=== PATIENT | female | born 2000 | race Caucasian/White ===

== ENCOUNTER 2024-04-05 06:32 | Emergency (ER) | payer OTHER ==
[~2024-04-05] VITALS: Ht 154.9 cm; Wt 75.5 kg
[2024-04-05] MEDS ORDERED: diphenhydrAMINE HCL 50 MG/ML VIAL IV ONE (07:00)
[2024-04-05] MEDS ORDERED: KETOROLAC TROMETHAMINE 30 MG/ML VIAL IV ONE (07:00)
[2024-04-05] MEDS ORDERED: LACTATED RINGER'S 1,000 ML IV ONE (07:00)
[2024-04-05] MEDS ORDERED: PROCHLORPERAZINE EDISYLATE 10 MG/2 ML VIAL IV ONE (07:00)
[2024-04-05] MEDS ORDERED: IMITREX100 MG (07:07)
[2024-04-05] MEDS ORDERED: PROZAC20 MG (07:08)
[2024-04-05 08:11] LABS: INFLUENZA B NAA NEGATIVE (NEGATIVE); RESPIRATORY SYNCYTIAL VIR NAA NEGATIVE (NEGATIVE)
[2024-04-05 08:34] VITALS: BP 137/84
== END 2024-04-05 08:34 | disposition home or self-care (01) ==
LOC: ED 06:32
PROVIDERS: Internal Medicine
DX: G43.919 Migraine, unspecified, intractable, without status migrainosus (principal); Z88.0 Allergy status to penicillin; Z88.2 Allergy status to sulfonamides; Z79.899 Other long term (current) drug therapy; Z20.822 Contact with and (suspected) exposure to COVID-19
CPT/HCPCS: 87502; 96374; 96375; 99283-25; J0780; J1200; J1885; J7121; U0002

== ENCOUNTER 2024-06-17 21:05 | Emergency (ER) | payer OTHER ==
[~2024-06-17] VITALS: Ht 154.9 cm; Wt 77.0 kg
[~2024-06-17 21:05] MED LIST: IMITREX100 MG; PROZAC20 MG
[2024-06-17] MEDS ORDERED: droPERidol 5 MG/2 ML VIAL IV ONE (22:45)
[2024-06-17] MEDS ORDERED: KETOROLAC TROMETHAMINE 30 MG/ML VIAL IV ONE (22:45)
[2024-06-17] MEDS ORDERED: SODIUM CHLORIDE 0.9% 1,000 ML IV ONE (22:45)
[2024-06-17 23:13] LABS: BASOPHILS 0.3 % (0-2); EOSINOPHILS 0.3 % (0-6); HEMATOCRIT 41.4 % (35.0-50.0); HEMOGLOBIN 14.2 g/dL (12.0-18.0); LYMPHOCYTES 12.7 % (24-44); MCH 30.2 (27-36); MCHC 34.3 g/dl (30-36); MCV 88.1 fl (81-99); MONOCYTES 5.1 % (0-12); NEUTROPHILS 81.6 % (39-80); PLATELET COUNT 328 K/uL (140-440); RDW 12.8 (10.5-15.0)
[2024-06-17 23:28] LABS: ALBUMIN 4.5 g/dL (3.4-5.0); ALBUMIN/GLOBULIN RATIO 1.36 (1.1-2.4); ANION GAP 18.4 (7-21); BILIRUBIN, TOTAL 0.5 ng/dL (0.2-1.0); BUN/CREATININE RATIO 9.19 (6.0-28.6); CALCIUM 9.8 mg/dL (8.5-10.1); CREATININE, SERUM 0.87 mg/dL (0.55-1.02); MAGNESIUM 1.6 mg/dL (1.8-2.4); POTASSIUM 3.4 mmol/L (3.5-5.1); PROTEIN, TOTAL 7.8 g/dL (6.4-8.2)
[2024-06-18 00:08] LABS: BILIRUBIN, URINE NEGATIVE (negative); BLOOD/HGB, URINE NEGATIVE (Negative); KETONE, URINE SMALL (Negative); LEUK ESTERASE, URINE NEGATIVE (negative); NITRITE, URINE NEGATIVE (negative)
[2024-06-18] MEDS ORDERED: IMITREX25 MG PO (00:13)
[2024-06-18] MEDS ORDERED: ONDANSETRON ODT8 MG PO (00:13)
[2024-06-18] MEDS ORDERED: ONDANSETRON 4 MG HOME.PACK SL ONE (00:15)
[2024-06-18 00:27] VITALS: BP 114/75
== END 2024-06-18 00:27 | disposition home or self-care (01) ==
LOC: ED 21:05
PROVIDERS: Family Medicine
DX: G43.909 Migraine, unspecified, not intractable, without status migrainosus (principal); Z88.2 Allergy status to sulfonamides; Z88.0 Allergy status to penicillin; Z79.899 Other long term (current) drug therapy
CPT/HCPCS: 36415; 80053; 81003; 83735; 84703; 85025; 96361; 96374; 96375; 99283-25; A9270; J1790; J1885; J7030

== ENCOUNTER 2024-10-15 19:26 | Emergency (ER) | payer OTHER ==
[~2024-10-15] VITALS: Ht 154.9 cm; Wt 76.2 kg
[~2024-10-15 19:26] MED LIST changes: +IMITREX25 MG PO; +ONDANSETRON ODT8 MG PO
[2024-10-15] MEDS ORDERED: PROCHLORPERAZINE EDISYLATE 10 MG/2 ML VIAL IM ONE (20:15)
[2024-10-15] MEDS ORDERED: KETOROLAC TROMETHAMINE 60 MG/2 ML VIAL IM ONE (20:15)
[2024-10-15 20:51] LABS: CORONAVIRUS COVID-19 AG NEGATIVE (NEGATIVE); INFLUENZA A AG NEGATIVE (NEGATIVE); INFLUENZA B AG NEGATIVE (NEGATIVE)
[2024-10-15] MEDS ORDERED: CEPHALEXIN500 M1 PO (21:08)
[2024-10-15] MEDS ORDERED: CEPHALEXIN MONOHYDRATE 500 MG HOME.PACK PO ONE (21:15)
[2024-10-15 21:22] VITALS: BP 135/86
== END 2024-10-15 21:24 | disposition home or self-care (01) ==
LOC: ED 19:26
PROVIDERS: Family Medicine
DX: G43.909 Migraine, unspecified, not intractable, without status migrainosus (principal); L73.9 Follicular disorder, unspecified; Z88.2 Allergy status to sulfonamides; Z88.0 Allergy status to penicillin; Z79.899 Other long term (current) drug therapy
CPT/HCPCS: 36415; 96372; 99284; A9270; J0780; J1885

== ENCOUNTER 2025-02-27 07:29 | Emergency (ER) | payer OTHER ==
[~2025-02-27] VITALS: Ht 154.9 cm; Wt 76.4 kg
[~2025-02-27 07:29] MED LIST changes: +CEPHALEXIN500 M1 PO
[2025-02-27 07:54] LABS: BASOPHILS 0.6 % (0.1-1.2); EOSINOPHILS 1.1 % (0.7-5.8); LYMPHOCYTES 31.5 % (19.3-51.7); MCH 29.8 PG (25.6-32.2); MCHC 35.5 g/dL (32.2-35.5); MCV 83.9 fL (79.4-94.8); MONOCYTES 6.3 % (4.7-12.5); NEUTROPHILS 60.1 % (34.0-71.1); RBC 5.04 M/uL (3.93-5.22)
[2025-02-27] MEDS ORDERED: VITAMIN D350 MCG PO (07:58)
[2025-02-27] MEDS ORDERED: PRENATAL MULTI1 EAC3 PO (07:59)
[2025-02-27] MEDS ORDERED: SODIUM CHLORIDE 0.9% 500 ML IV ONE (08:00)
[2025-02-27] MEDS ORDERED: POTASSIUM CHLO10 MEQ PO (08:00)
[2025-02-27 08:12] LABS: ALT (SGPT) 25.0 U/L (14-59); AST (SGOT) 12.0 U/L (15-37); GLOMERULAR FILTRATION RATE,EST 88.0 mL/min (>60); PROTEIN, TOTAL 7.7 g/dL (6.4-8.2); UREA NITROGEN 14.0 mg/dL (7-18)
[2025-02-27 10:00] LABS: BLOOD/HGB, URINE NEGATIVE (Negative); KETONE, URINE SMALL (Negative); LEUK ESTERASE, URINE NEGATIVE (negative); NITRITE, URINE NEGATIVE (negative)
[2025-02-27] MEDS ORDERED: ONDANSETRON ODT4 MG PO (10:24)
[2025-02-27 10:59] VITALS: BP 128/91
== END 2025-02-27 10:59 | disposition home or self-care (01) ==
LOC: ED 07:29
PROVIDERS: Emergency Medicine
DX: R11.2 Nausea with vomiting, unspecified (principal); R19.7 Diarrhea, unspecified; F12.90 Cannabis use, unspecified, uncomplicated; E78.00 Pure hypercholesterolemia, unspecified; G43.909 Migraine, unspecified, not intractable, without status migrainosus; Z88.2 Allergy status to sulfonamides; Z88.0 Allergy status to penicillin; Z79.899 Other long term (current) drug therapy
CPT/HCPCS: 36415; 80053; 81003; 83690; 83735; 84703; 85025; 96361; 96374; 96375; 99284-25; J1790; J2405; J7040

== ENCOUNTER 2025-02-28 08:14 | Emergency (ER) | payer OTHER ==
[~2025-02-28] VITALS: Ht 154.9 cm; Wt 75.0 kg
[~2025-02-28 08:14] MED LIST changes: +ONDANSETRON ODT4 MG PO; +POTASSIUM CHLO10 MEQ PO; +PRENATAL MULTI1 EAC3 PO; +VITAMIN D350 MCG PO
--- OUTSIDE RECORDS SUMMARY | 2025-02-28 08:18 | XMS ---
PreManage Notification: FAVIAN BULLARD Security Personal Care Attendant Events No recent Security Events currently on file CRITERIA MET - [facility] - 2 Visits in 30 Days CARE PROVIDERS -, [facility] Dentist: Shift Engineer Current [place] PHONE: [phone] SILVINA ARREDONDO Physician Drafter Electromechanical Current PHONE: [phone] IZZY FITZGERALD Night Filler Current [place] PHONE: Unknown SILVINA CORDERO Counselor: Mental Health Current JOSEY PHONE: [phone] [facility] Clinic/Center: [facility][Note 3]ly Qualified Health Current WORKERS CLINIC \[facility] ([facility]) <UNAVAIL> PHONE: [phone] Shanel has no Care Guidelines for this patient. Marissa VISIT COUNT (12 MO.) [address] [facility] TOTAL 5 NOTE: Visits indicate total known visits. ED/UCC VISIT TRACKING (12 MO.) 02/28/2025 08:[address] [facility] [place] TYPE: Emergency COMPLAINT: - ABDOMINAL PAIN 02/27/2025 07:[address] [facility] [place] TYPE: Emergency COMPLAINT: - VOMITING 10/15/2024 19:26 YENNY [place] TYPE: Emergency COMPLAINT: - FLU SYMPTOMS DIAGNOSES: - Allergy status to penicillin - Allergy status to sulfonamides - Follicular disorder, unspecified - Headache, unspecified - Migraine, unspecified, not intractable, without status migrainosus - Other longitudinal float operator (current) drug therapy 06/17/2024 21:06 YENNY [place] TYPE: Emergency COMPLAINT: - MIGRAINE AND VOMITING DIAGNOSES: - Allergy status to penicillin - Allergy status to sulfonamides - Headache, unspecified - Migraine, unspecified, not intractable, without status migrainosus - Other fpc (current) drug therapy 04/05/2024 06:33 YENNY [place] TYPE: Emergency COMPLAINT: - VOMITING DIAGNOSES: - Allergy status to penicillin - Allergy status to sulfonamides - Contact with and (suspected) exposure to COVID-19 - Headache, unspecified - Migraine, unspecified, intractable, without status migrainosus - Other longitudinal float operator (current) drug therapy INPATIENT VISIT TRACKING (12 MO.) No inpatient visits to display in this time frame [id number]
[2025-02-28 08:43] LABS: BASOPHILS 0.2 % (0.1-1.2); EOSINOPHILS 0 % (0.7-5.8); LYMPHOCYTES 12.7 % (19.3-51.7); MCH 29.2 PG (25.6-32.2); MCHC 34.7 g/dL (32.2-35.5); MCV 84.2 fL (79.4-94.8); MONOCYTES 4.5 % (4.7-12.5); NEUTROPHILS 82.3 % (34.0-71.1); RBC 4.69 M/uL (3.93-5.22)
[2025-02-28 09:05] LABS: ALT (SGPT) 24.0 U/L (14-59); AST (SGOT) 13.0 U/L (15-37); GLOMERULAR FILTRATION RATE,EST 120.0 mL/min (>60); PROTEIN, TOTAL 7.7 g/dL (6.4-8.2); UREA NITROGEN 10.0 mg/dL (7-18)
[2025-02-28 10:49] VITALS: BP 144/83
[2025-03-01] MEDS ORDERED: PROMETHEGAN25 MG PR (07:13)
== END 2025-02-28 10:50 | disposition home or self-care (01) ==
LOC: ED 08:14
PROVIDERS: Emergency Medicine
DX: R10.30 Lower abdominal pain, unspecified (principal); Z88.0 Allergy status to penicillin; Z88.2 Allergy status to sulfonamides; Z79.899 Other long term (current) drug therapy
CPT/HCPCS: 36415; 74177; 80053; 84443; 85025; 99284-25; Q9967

== ENCOUNTER 2025-03-01 06:15 | Emergency (ER) | payer OTHER ==
[~2025-03-01] VITALS: Ht 154.9 cm; Wt 75.3 kg
--- OUTSIDE RECORDS SUMMARY | 2025-03-01 06:22 | XMS ---
PreManage Notification: FAVIAN BULLARD Security Fiber Heel Piece Shaper Events No recent Security Events currently on file CRITERIA MET - [facility] - 2 Visits in 30 Days CARE PROVIDERS -, [facility] Dentist: Window Covering Sales Consultant Current [place] PHONE: [phone] SILVINA ARREDONDO Physician Earth Mover Current PHONE: [phone] IZZY FITZGERALD Drill Runner Current [place] PHONE: Unknown SILVINA CORDERO Counselor: Mental Health Current JOSEY PHONE: [phone] [facility] Clinic/Center: [facility] Qualified Health Current WORKERS CLINIC \[facility] ([facility]) <UNAVAIL> PHONE: [phone] Shanel has no Care Guidelines for this patient. Marissa VISIT COUNT (12 MO.) [address] [facility] TOTAL 6 NOTE: Visits indicate total known visits. ED/UCC VISIT TRACKING (12 MO.) 03/01/2025 06:15 [place] TYPE: Emergency COMPLAINT: - VOMITING 02/28/2025 08:15 [place] TYPE: Emergency COMPLAINT: - ABDOMINAL PAIN 02/27/2025 07:30 [place] TYPE: Emergency COMPLAINT: - VOMITING 10/15/2024 19:26 YENNY [place] TYPE: Emergency COMPLAINT: - FLU SYMPTOMS DIAGNOSES: - Allergy status to penicillin - Allergy status to sulfonamides - Follicular disorder, unspecified - Headache, unspecified - Migraine, unspecified, not intractable, without status migrainosus - Other custodial (current) drug therapy 06/17/2024 21:06 YENNY [place] TYPE: Emergency COMPLAINT: - MIGRAINE AND VOMITING DIAGNOSES: - Allergy status to penicillin - Allergy status to sulfonamides - Headache, unspecified - Migraine, unspecified, not intractable, without status migrainosus - Other custodial (current) drug therapy 04/05/2024 06:33 YENNY [place] TYPE: Emergency COMPLAINT: - VOMITING DIAGNOSES: - Allergy status to penicillin - Allergy status to sulfonamides - Contact with and (suspected) exposure to COVID-19 - Headache, unspecified - Migraine, unspecified, intractable, without status migrainosus - Other custodial (current) drug therapy INPATIENT VISIT TRACKING (12 MO.) No inpatient visits to display in this time frame [id number]
[2025-03-01] MEDS ORDERED: LACTATED RINGER'S 1,000 ML IV ONE (06:30)
[2025-03-01] MEDS ORDERED: KETOROLAC TROMETHAMINE 15 MG/ML VIAL IV ONE (06:30)
[2025-03-01] MEDS ORDERED: PROMETHEGAN25 MG PR (07:13)
[2025-03-01] MEDS ORDERED: PROMETHAZINE HCL 25 MG SUPP. HOME.PACK PR ONE (07:15)
[2025-03-01] MEDS ORDERED: PROCHLORPERAZINE EDISYLATE 10 MG/2 ML VIAL IV ONE (07:15)
[2025-03-01] MEDS ORDERED: CAPSAICIN 0.1% 56.6 GM TUBE TOP ONE (07:15)
[2025-03-01 08:49] VITALS: BP 136/90
== END 2025-03-01 08:55 | disposition home or self-care (01) ==
LOC: ED 06:15
DX: R11.2 Nausea with vomiting, unspecified (principal); E78.00 Pure hypercholesterolemia, unspecified; G43.909 Migraine, unspecified, not intractable, without status migrainosus; Z79.899 Other long term (current) drug therapy; Z88.2 Allergy status to sulfonamides; Z88.0 Allergy status to penicillin
CPT/HCPCS: 96361; 96374; 96375; 96376; 99283-25; J0780; J1200; J1790; J1885; J7121

== ENCOUNTER 2025-06-28 07:24 | Emergency (ER) | payer OTHER ==
[~2025-06-28] VITALS: Ht 154.9 cm; Wt 73.9 kg
[~2025-06-28 07:24] MED LIST changes: +PROMETHEGAN25 MG PR
--- OUTSIDE RECORDS SUMMARY | 2025-06-28 07:30 | XMS ---
PreManage Notification: FAVIAN BULLARD Security Marketing Operations Assistant Events No recent Security Events currently on file CRITERIA MET - 6 ED Visits in 6 Months CARE PROVIDERS -, [facility] Dentist: Rn Medical Surgical Current [place] PHONE: [phone] SILVINA ARREDONDO Physician Metallurgical Specialist Current PHONE: [phone] IZZY FITZGERALD Spar Machine Operator Nuvia [place] PHONE: [phone] SILVINA CORDERO Counselor: Mental Health Nuvia DOWL[place] PHONE: [phone] [facility] Clinic/Center: [facility] Qualified Health Current WORKERS CLINIC [facility] ([facility]) <UNAVAIL> PHONE: [phone] Shanel has no Care Guidelines for this patient. ERigoberto VISIT COUNT (12 MO.) 7 YENNY Marie M.[facility]. TOTAL 8 NOTE: Visits indicate total known visits. ED/UCC VISIT TRACKING (12 MO.) 06/28/2025 07:[address] [facility] [address] [facility] [place] TYPE: Emergency COMPLAINT: - HEADACHE 03/29/2025 21:04 Maria Elena CARUSO TYPE: Emergency COMPLAINT: - VOMITTING,TREMORS,DIZZY 03/23/2025 01:[address] [facility] [address] [facility] [place] TYPE: Emergency COMPLAINT: - VOMITING DIAGNOSES: - Allergy status to penicillin - Allergy status to sulfonamides - Migraine, unspecified, not intractable, without status migrainosus - Nausea with vomiting, unspecified - Other vermin exterminator (current) drug therapy 03/22/2025 06:[address] [facility] [address] [facility] [place] TYPE: Emergency COMPLAINT: - ABD PAIN,NAUSEA,VOMITING DIAGNOSES: - Allergy status to penicillin - Allergy status to sulfonamides - Nausea with vomiting, unspecified - Other group home (current) drug therapy 03/01/2025 06:15 [facility] [place] TYPE: Emergency COMPLAINT: - VOMITING DIAGNOSES: - Allergy status to penicillin - Allergy status to sulfonamides - Migraine, unspecified, not intractable, without status migrainosus - Nausea with vomiting, unspecified - Other group home (current) drug therapy - Pure hypercholesterolemia, unspecified 02/28/2025 08:15 [facility] [place] TYPE: Emergency COMPLAINT: - ABDOMINAL PAIN DIAGNOSES: - Allergy status to penicillin - Allergy status to sulfonamides - Lower abdominal pain, unspecified - Other group home (current) drug therapy 02/27/2025 07:30 [facility] [place] TYPE: Emergency COMPLAINT: - VOMITING DIAGNOSES: - Allergy status to penicillin - Allergy status to sulfonamides - Cannabis use, unspecified, uncomplicated - Diarrhea, unspecified - Migraine, unspecified, not intractable, without status migrainosus - Nausea with vomiting, unspecified - Other group home (current) drug therapy - Pure hypercholesterolemia, unspecified 10/15/2024 19:26 YENNY [place] TYPE: Emergency COMPLAINT: - FLU SYMPTOMS DIAGNOSES: - Allergy status to penicillin - Allergy status to sulfonamides - Follicular disorder, unspecified - Headache, unspecified - Migraine, unspecified, not intractable, without status migrainosus - Other vermin exterminator (current) drug therapy INPATIENT VISIT TRACKING (12 MO.) No inpatient visits to display in this time frame [id number]
[2025-06-28] MEDS ORDERED: KETOROLAC TROMETHAMINE 15 MG/ML VIAL IV ONE (07:45)
[2025-06-28] MEDS ORDERED: METOCLOPRAMIDE HCL 10 MG/2 ML SDV IV ONE (07:45)
[2025-06-28] MEDS ORDERED: SODIUM CHLORIDE 0.9% 1,000 ML IV PRN (07:45)
[2025-06-28 08:32] LABS: CORONAVIRUS COVID-19 AG NEGATIVE (NEGATIVE)
[2025-06-28] MEDS ORDERED: PROCHLORPERAZINE EDISYLATE 10 MG/2 ML VIAL IV ONE (08:45)
[2025-06-28 09:36] VITALS: BP 130/84
== END 2025-06-28 09:35 | disposition home or self-care (01) ==
LOC: ED 07:24
PROVIDERS: Emergency Medicine
DX: R51.9 Headache, unspecified (principal); R11.2 Nausea with vomiting, unspecified; E78.00 Pure hypercholesterolemia, unspecified; G43.909 Migraine, unspecified, not intractable, without status migrainosus; Z79.899 Other long term (current) drug therapy; Z88.2 Allergy status to sulfonamides; Z88.0 Allergy status to penicillin
CPT/HCPCS: 36415; 96361; 96374; 96375; 99284-25; J0780; J1200; J1885; J2765; J7030

== ENCOUNTER 2025-07-26 08:25 | Emergency (ER) | payer OTHER ==
[~2025-07-26] VITALS: Ht 154.9 cm; Wt 73.2 kg
--- OUTSIDE RECORDS SUMMARY | 2025-07-26 08:32 | XMS ---
PreManage Notification: FAVIAN BULLARD Security Bean Sprout Laborer Events No recent Security Events currently on file CRITERIA MET - 6 ED Visits in 6 Months - [facility] - 2 Visits in 30 Days CARE PROVIDERS -, [facility] Dentist: Carriage Operator [place]uvia [place] PHONE: [phone] SILVINA ARREDONDO Physician Acute Care Surgeon Current PHONE: [phone] IZZY FITZGERALD Adobe Maker [place]uvia [place] PHONE: [phone] SILVINA CORDERO Counselor: Mental Health Nuvia DOWL[place] PHONE: [phone] [facility] Clinic/Center: Federally Qualified Health Current WORKERS CLINIC \[facility] ([facility]) <UNAVAIL> PHONE: [phone] Shanel has no Care Guidelines for this patient. ERigoberto VISIT COUNT (12 MO.) 8 YENNY Marie M.C. TOTAL 9 NOTE: Visits indicate total known visits. ED/UCC VISIT TRACKING (12 MO.) 07/26/2025 08:25 YENNY Ferreira TYPE: Emergency COMPLAINT: - VOMITING 06/28/2025 07:24 YENNY [place] TYPE: Emergency COMPLAINT: - HEADACHE DIAGNOSES: - Allergy status to penicillin - Allergy status to sulfonamides - Headache, unspecified - Migraine, unspecified, not intractable, without status migrainosus - Nausea with vomiting, unspecified - Other terminal worker (current) drug therapy - Pure hypercholesterolemia, unspecified 03/29/2025 21:04 Maria Elena CARUSO TYPE: Emergency COMPLAINT: - VOMITTING,TREMORS,DIZZY 03/23/2025 01:12 YENNY [place] TYPE: Emergency COMPLAINT: - VOMITING DIAGNOSES: - Allergy status to penicillin - Allergy status to sulfonamides - Migraine, unspecified, not intractable, without status migrainosus - Nausea with vomiting, unspecified - Other terminal worker (current) drug therapy 03/22/2025 06:41 [facility] [place] TYPE: Emergency COMPLAINT: - ABD PAIN,NAUSEA,VOMITING DIAGNOSES: - Allergy status to penicillin - Allergy status to sulfonamides - Nausea with vomiting, unspecified - Other terminal worker (current) drug therapy 03/01/2025 06:15 [facility] [place] TYPE: Emergency COMPLAINT: - VOMITING DIAGNOSES: - Allergy status to penicillin - Allergy status to sulfonamides - Migraine, unspecified, not intractable, without status migrainosus - Nausea with vomiting, unspecified - Other care home (current) drug therapy - Pure hypercholesterolemia, unspecified 02/28/2025 08:15 [facility] [place] TYPE: Emergency COMPLAINT: - ABDOMINAL PAIN DIAGNOSES: - Allergy status to penicillin - Allergy status to sulfonamides - Lower abdominal pain, unspecified - Other terminal worker (current) drug therapy 02/27/2025 07:30 YENNY Anders [place] TYPE: Emergency COMPLAINT: - VOMITING DIAGNOSES: - Allergy status to penicillin - Allergy status to sulfonamides - Cannabis use, unspecified, uncomplicated - Diarrhea, unspecified - Migraine, unspecified, not intractable, without status migrainosus - Nausea with vomiting, unspecified - Other terminal worker (current) drug therapy - Pure hypercholesterolemia, unspecified 10/15/2024 19:26 YENNY [place] TYPE: Emergency COMPLAINT: - FLU SYMPTOMS DIAGNOSES: - Allergy status to penicillin - Allergy status to sulfonamides - Follicular disorder, unspecified - Headache, unspecified - Migraine, unspecified, not intractable, without status migrainosus - Other care home (current) drug therapy INPATIENT VISIT TRACKING (12 MO.) No inpatient visits to display in this time frame [id number]
[2025-07-26] MEDS ORDERED: SODIUM CHLORIDE 0.9% 1,000 ML IV PRN (08:45)
[2025-07-26 08:58] LABS: BASOPHILS 0.4 % (0.1-1.2); EOSINOPHILS 0.4 % (0.7-5.8); LYMPHOCYTES 15.7 % (19.3-51.7); MCH 29.9 PG (25.6-32.2); MCHC 35.8 g/dL (32.2-35.5); MCV 83.7 fL (79.4-94.8); MONOCYTES 5.3 % (4.7-12.5); NEUTROPHILS 77.8 % (34.0-71.1); RBC 4.91 M/uL (3.93-5.22)
[2025-07-26] MEDS ORDERED: PROCHLORPERAZINE EDISYLATE 10 MG/2 ML VIAL IV ONE (09:15)
[2025-07-26 09:20] LABS: ALT (SGPT) 33.0 U/L (14-59); AST (SGOT) 17.0 U/L (15-37); GLOMERULAR FILTRATION RATE,EST 93.0 mL/min (>60); PROTEIN, TOTAL 8.1 g/dL (6.4-8.2); UREA NITROGEN 13.0 mg/dL (7-18)
[2025-07-26] MEDS ORDERED: PROMETHAZINE HC25 M1 PO (11:29)
[2025-07-26 11:37] VITALS: BP 127/89
== END 2025-07-26 11:37 | disposition home or self-care (01) ==
LOC: ED 08:25
PROVIDERS: Emergency Medicine
DX: R11.16 Cannabis hyperemesis syndrome (principal); E78.00 Pure hypercholesterolemia, unspecified; G43.909 Migraine, unspecified, not intractable, without status migrainosus; Z79.899 Other long term (current) drug therapy; Z88.2 Allergy status to sulfonamides; Z88.0 Allergy status to penicillin
CPT/HCPCS: 36415; 80053; 83690; 83735; 84703; 85025; 96361; 96374; 96375; 99284-25; J0780; J1200; J2405; J7030

== ENCOUNTER 2025-08-12 08:15 | Emergency (ER) | payer OTHER ==
[~2025-08-12] VITALS: Ht 154.9 cm; Wt 73.2 kg
[~2025-08-12 08:15] MED LIST changes: +PROMETHAZINE HC25 M1 PO
--- OUTSIDE RECORDS SUMMARY | 2025-08-12 08:18 | XMS ---
PreManage Notification: FAVIAN BULLARD Security Squad Sergeant Events No recent Security Events currently on file CRITERIA MET - 6 ED Visits in 6 Months - [facility] - 2 Visits in 30 Days CARE PROVIDERS -, [facility] Dentist: Legal Administrative Assistant Nuvia [place] PHONE: [phone] SILVINA ARREDONDO Physician Associate Programmer Current PHONE: [phone] IZZY FITZGERALD Electrician Assistant Nuvia [place] PHONE: [phone] SILVINA CORDERO Counselor: Mental Health Nuvia DOWLING PHONE: [phone] [facility] Clinic/Center: Federally Qualified Health Current WORKERS CLINIC \[facility] ([facility]) <UNAVAIL> PHONE: [phone] Shanel has no Care Guidelines for this patient. ERigoberto VISIT COUNT (12 MO.) 9 YENNY Marie M.C. TOTAL 10 NOTE: Visits indicate total known visits. ED/UCC VISIT TRACKING (12 MO.) 08/12/2025 08:[address] [facility] [address] [facility] [place] TYPE: Emergency COMPLAINT: - VOMITING 07/26/2025 08:25 YENNY Anders [place] TYPE: Emergency COMPLAINT: - VOMITING DIAGNOSES: - Allergy status to penicillin - Allergy status to sulfonamides - Cannabis hyperemesis syndrome - Migraine, unspecified, not intractable, without status migrainosus - Other jail (current) drug therapy - Pure hypercholesterolemia, unspecified - Unspecified abdominal pain 06/28/2025 07:[address] [facility] [address] [facility] [place] TYPE: Emergency COMPLAINT: - HEADACHE DIAGNOSES: - Allergy status to penicillin - Allergy status to sulfonamides - Headache, unspecified - Migraine, unspecified, not intractable, without status migrainosus - Nausea with vomiting, unspecified - Other jail (current) drug therapy - Pure hypercholesterolemia, unspecified 03/29/2025 21:04 Maria Elena CARUSO TYPE: Emergency COMPLAINT: - VOMITTING,TREMORS,DIZZY 03/23/2025 01:12 [place] TYPE: Emergency COMPLAINT: - VOMITING DIAGNOSES: - Allergy status to penicillin - Allergy status to sulfonamides - Migraine, unspecified, not intractable, without status migrainosus - Nausea with vomiting, unspecified - Other long distance billing operator (current) drug therapy 03/22/2025 06:41 [place] TYPE: Emergency COMPLAINT: - ABD PAIN,NAUSEA,VOMITING DIAGNOSES: - Allergy status to penicillin - Allergy status to sulfonamides - Nausea with vomiting, unspecified - Other jail (current) drug therapy 03/01/2025 06:15 [place] TYPE: Emergency COMPLAINT: - VOMITING DIAGNOSES: - Allergy status to penicillin - Allergy status to sulfonamides - Migraine, unspecified, not intractable, without status migrainosus - Nausea with vomiting, unspecified - Other long distance billing operator (current) drug therapy - Pure hypercholesterolemia, unspecified 02/28/2025 08:15 [place] TYPE: Emergency COMPLAINT: - ABDOMINAL PAIN DIAGNOSES: - Allergy status to penicillin - Allergy status to sulfonamides - Lower abdominal pain, unspecified - Other long distance billing operator (current) drug therapy 02/27/2025 07:30 [place] TYPE: Emergency COMPLAINT: - VOMITING DIAGNOSES: - Allergy status to penicillin - Allergy status to sulfonamides - Cannabis use, unspecified, uncomplicated - Diarrhea, unspecified - Migraine, unspecified, not intractable, without status migrainosus - Nausea with vomiting, unspecified - Other jail (current) drug therapy - Pure hypercholesterolemia, unspecified 10/15/2024 19:26 [place] TYPE: Emergency COMPLAINT: - FLU SYMPTOMS DIAGNOSES: - Allergy status to penicillin - Allergy status to sulfonamides - Follicular disorder, unspecified - Headache, unspecified - Migraine, unspecified, not intractable, without status migrainosus - Other jail (current) drug therapy INPATIENT VISIT TRACKING (12 MO.) No inpatient visits to display in this time frame [id number]
[2025-08-12] MEDS ORDERED: SODIUM CHLORIDE 0.9% 500 ML IV ONE (08:45)
[2025-08-12 08:50] LABS: BASOPHILS 0.8 % (0.1-1.2); EOSINOPHILS 0.2 % (0.7-5.8); LYMPHOCYTES 9.5 % (19.3-51.7); MCH 29.6 PG (25.6-32.2); MCHC 34.9 g/dL (32.2-35.5); MCV 84.6 fL (79.4-94.8); MONOCYTES 9.1 % (4.7-12.5); NEUTROPHILS 80.0 % (34.0-71.1); RBC 4.67 M/uL (3.93-5.22)
[2025-08-12 08:53] LABS: BLOOD/HGB, URINE LARGE (Negative); KETONE, URINE >=80 (Negative); LEUK ESTERASE, URINE NEGATIVE (negative); NITRITE, URINE NEGATIVE (negative)
[2025-08-12] MEDS ORDERED: SODIUM CHLORIDE 0.9% 1,000 ML IV PRN (09:00)
[2025-08-12 09:16] LABS: ALT (SGPT) 20.0 U/L (14-59); AST (SGOT) 9.0 U/L (15-37); BACTERIA, URINE NONE SEEN /hpf (negative); CASTS, URINE NONE SEEN \\lpf; CRYSTALS, URINE NONE SEEN (0-1+); EPITHELIAL CELLS, URINE SQUAMOUS 4+ /lpf (0-1+); GLOMERULAR FILTRATION RATE,EST 90.0 mL/min (>60); PROTEIN, TOTAL 7.9 g/dL (6.4-8.2); REFLEX CULTURE, URINE No (No); UREA NITROGEN 8.0 mg/dL (7-18)
[2025-08-12] MEDS ORDERED: PROCHLORPERAZIN10 MG PO (09:44)
[2025-08-12] MEDS ORDERED: POTASSIUM CHLORIDE 10 MEQ TABCR PO ONE (10:00)
[2025-08-12] MEDS ORDERED: ACETAMINOPHEN 500 MG TAB PO ONE (10:45)
[2025-08-13] MEDS ORDERED: ONDANSETRON ODT4 MG PO (19:18)
[2025-08-13] MEDS ORDERED: OSELTAMIVIR PHO75 MG PO (19:19)
== END 2025-08-12 10:48 | disposition home or self-care (01) ==
LOC: ED 08:15
PROVIDERS: Emergency Medicine
DX: R11.2 Nausea with vomiting, unspecified (principal); Z88.2 Allergy status to sulfonamides; Z88.0 Allergy status to penicillin; Z79.899 Other long term (current) drug therapy
CPT/HCPCS: 36415; 80053; 81001; 83735; 84703; 85025; 96361; 96374; 96375; 99284-25; A9270; J1790; J2405; J7030

== ENCOUNTER 2025-08-13 19:02 | Emergency (ER) | payer OTHER ==
[~2025-08-13] VITALS: Ht 154.9 cm; Wt 69.9 kg
[~2025-08-13 19:02] MED LIST changes: +PROCHLORPERAZIN10 MG PO
--- OUTSIDE RECORDS SUMMARY | 2025-08-13 19:09 | XMS ---
PreManage Notification: FAVIAN BULLARD Security Housing Property Manager Events No recent Security Events currently on file CRITERIA MET - 6 ED Visits in 6 Months - [facility] - 2 Visits in 30 Days CARE PROVIDERS -, [facility] Dentist: Negative Cleaner Nuvia [place] PHONE: [phone] SILVINA ARREDONDO Physician Extension Work Instructor Current PHONE: [phone] IZZY FITZGERALD Corporate Ethics Officer Nuvia [place] PHONE: [phone] SILVINA CORDERO Counselor: Mental Health Nuvia DOWL[place] PHONE: [phone] [facility] Clinic/Center: Federally Qualified Health Current WORKERS CLINIC \[facility] ([facility]) <UNAVAIL> PHONE: [phone] Shanel has no Care Guidelines for this patient. ERigoberto VISIT COUNT (12 MO.) 10 YENNY Marie M.C. TOTAL 11 NOTE: Visits indicate total known visits. ED/UCC VISIT TRACKING (12 MO.) 08/13/2025 19:[address] [facility] [address] [facility] [place] TYPE: Emergency COMPLAINT: - VOMITING 08/12/2025 08:[address] [facility] [address] [facility] [place] TYPE: Emergency COMPLAINT: - VOMITING 07/26/2025 08:25 YENNY Anders [place] TYPE: Emergency COMPLAINT: - VOMITING DIAGNOSES: - Allergy status to penicillin - Allergy status to sulfonamides - Cannabis hyperemesis syndrome - Migraine, unspecified, not intractable, without status migrainosus - Other [facility] (current) drug therapy - Pure hypercholesterolemia, unspecified - Unspecified abdominal pain 06/28/2025 07:[address] [facility] [address] [facility] [place] TYPE: Emergency COMPLAINT: - HEADACHE DIAGNOSES: - Allergy status to penicillin - Allergy status to sulfonamides - Headache, unspecified - Migraine, unspecified, not intractable, without status migrainosus - Nausea with vomiting, unspecified - Other m[facility] (current) drug therapy - Pure hypercholesterolemia, unspecified 03/29/2025 21:04 Maria Elena CARUSO TYPE: Emergency COMPLAINT: - VOMITTING,TREMORS,DIZZY 03/23/2025 01:12 YENNY [place] TYPE: Emergency COMPLAINT: - VOMITING DIAGNOSES: - Allergy status to penicillin - Allergy status to sulfonamides - Migraine, unspecified, not intractable, without status migrainosus - Nausea with vomiting, unspecified - Other mcc (current) drug therapy 03/22/2025 06:41 YENNY Anders [place] TYPE: Emergency COMPLAINT: - ABD PAIN,NAUSEA,VOMITING DIAGNOSES: - Allergy status to penicillin - Allergy status to sulfonamides - Nausea with vomiting, unspecified - Other watermaster (current) drug therapy 03/01/2025 06:[address] [facility] [address] [facility] [place] TYPE: Emergency COMPLAINT: - VOMITING DIAGNOSES: - Allergy status to penicillin - Allergy status to sulfonamides - Migraine, unspecified, not intractable, without status migrainosus - Nausea with vomiting, unspecified - Other m[facility] (current) drug therapy - Pure hypercholesterolemia, unspecified 02/28/2025 08:[facility] [place] [facility]: Emergency COMPLAINT: - ABDOMINAL PAIN DIAGNOSES: - Allergy status to penicillin - Allergy status to sulfonamides - Lower abdominal pain, unspecified - Other [facility] (current) drug therapy 02/27/2025 07:[address] [facility] [address] [place] TYPE: Emergency COMPLAINT: - VOMITING DIAGNOSES: - Allergy status to penicillin - Allergy status to sulfonamides - Cannabis use, unspecified, uncomplicated - Diarrhea, unspecified - Migraine, unspecified, not intractable, without status migrainosus - Nausea with vomiting, unspecified - Other watermaster (current) drug therapy - Pure hypercholesterolemia, unspecified 10/15/2024 19:26 YENNY Anders [place] TYPE: Emergency COMPLAINT: - FLU SYMPTOMS DIAGNOSES: - Allergy status to penicillin - Allergy status to sulfonamides - Follicular disorder, unspecified - Headache, unspecified - Migraine, unspecified, not intractable, without status migrainosus - Other watermaster (current) drug therapy INPATIENT VISIT TRACKING (12 MO.) No inpatient visits to display in this time frame [id number]
[2025-08-13] MEDS ORDERED: ONDANSETRON ODT4 MG PO (19:18)
[2025-08-13] MEDS ORDERED: OSELTAMIVIR PHO75 MG PO (19:19)
[2025-08-13 19:37] LABS: BASOPHILS 0.6 % (0.1-1.2); EOSINOPHILS 0 % (0.7-5.8); LYMPHOCYTES 16.7 % (19.3-51.7); MCH 30.0 PG (25.6-32.2); MCHC 36.2 g/dL (32.2-35.5); MCV 83.0 fL (79.4-94.8); MONOCYTES 11.9 % (4.7-12.5); NEUTROPHILS 70.4 % (34.0-71.1); RBC 4.53 M/uL (3.93-5.22)
[2025-08-13] MEDS ORDERED: FAMOTIDINE 20 MG/ 2 ML VIAL IV ONE (19:45)
[2025-08-13] MEDS ORDERED: LACTATED RINGER'S 1,000 ML IV ONE (19:45)
[2025-08-13] MEDS ORDERED: SODIUM CHLORIDE 0.9% 500 ML IV ONE (19:45)
[2025-08-13 19:59] LABS: ALT (SGPT) 16.0 U/L (14-59); AST (SGOT) 14.0 U/L (15-37); GLOMERULAR FILTRATION RATE,EST 110.0 mL/min (>60); PROTEIN, TOTAL 7.4 g/dL (6.4-8.2); UREA NITROGEN 9.0 mg/dL (7-18)
== END 2025-08-13 22:05 | disposition home or self-care (01) ==
LOC: ED 19:02
PROVIDERS: Internal Medicine
DX: J10.1 Influenza due to other identified influenza virus with other respiratory manifestations (principal); R11.15 Cyclical vomiting syndrome unrelated to migraine; Z88.2 Allergy status to sulfonamides; Z88.0 Allergy status to penicillin; Z79.899 Other long term (current) drug therapy
CPT/HCPCS: 36415; 80053; 83735; 84703; 85025; 96361; 96374; 96375; 99284-25; J1790; J2405; J7040; J7121